=== PATIENT | female | born 1940 | race Caucasian/White ===

== ENCOUNTER 2016-11-23 07:01 | Day surgery (SDC) | payer OTHER ==
[~2016-11-23] VITALS: Ht 154.9 cm; Wt 70.8 kg
[~2016-11-23 07:01] MED LIST: ADVIL200 MG PO; AMLODIPINE BESY10 MG PO; APRESOLINE50 MG PO; ASPIR-LOW81 MG PO; BYSTOLIC10 MG PO; BYSTOLIC20 MG PO; Bystolic PO; CHOLESTYRAMINE P4 GM PO; COZAAR100 MG PO; CRESTOR20 MG PO; FERROUS SULFAT325 MG PO; HYDRALAZINE; HYDRALAZINE HCL50 MG PO; HYDROCHLOROTHIA25 MG PO; HYDROCODONE-CH473 ML PO; KEFLEX500 MG PO; KENLAOG,ARISTOC60 ML TP; LOPRESSOR25 MG PO; LOSARTAN POTASS25 MG PO; MECLIZINE HCL25 MG PO; METOPROLOL TART50 MG PO; Norvasc PO; PRILOSEC20 MG PO; Plavix PO; RESTASIS 01 DROP/0.4 BOTH EYES; XARELTO20 MG PO; ZESTRIL20 MG PO
== END 2016-11-23 11:20 | disposition home or self-care (01) ==
LOC: CATH 07:01
PROC: 03743ZZ Dilation of Left Subclavian Artery, Percutaneous Approach (ICD-10-PCS; principal; 2016-11-23)
DX: I77.1 Stricture of artery (principal); I48.91 Unspecified atrial fibrillation; E78.5 Hyperlipidemia, unspecified; I10 Essential (primary) hypertension; Z79.82 Long term (current) use of aspirin; Z79.01 Long term (current) use of anticoagulants
CPT/HCPCS: C1725; C1750; C1760; C1769; C1887; C1894; J0360; J1644; J2250; J3010; S0020

== ENCOUNTER 2018-05-14 16:41 | Inpatient (IN) | payer OTHER ==
[~2018-05-14] VITALS: Ht 152.4 cm; Wt 71.9 kg
[~2018-05-14 16:41] MED LIST changes: +LOPRESSOR100 M1 PO; -METOPROLOL TART50 MG PO; +OMEPRAZOLE40 M1 PO; +XARELTO10 MG PO
[2018-05-14 17:13] LABS: BASOPHIL (%) 0.4 % (0-1); EOSINOPHIL (%) 2.4 % (0-5); EOSINOPHIL COUNT 0.3 K/uL (0-0.3); HEMATOCRIT 36.7 % (36.0-46.0); HEMOGLOBIN 11.8 G/DL (11.9-15.5); IMMATURE GRANULOCYTE (%) 0.7 % (0.0-0.7); LYMPHOCYTE (%) 31.6 % (15-42); LYMPHOCYTE COUNT 3.3 K/uL (1.0-2.8); MCH 29.8 PG (29.0-34.0); MCHC 32.2 G/DL (30.0-36.0); MCV 92.7 FL (83-99); MONOCYTE (%) 9.4 % (3-12); NEUTROPHIL (%) 55.5 % (45-76); NEUTROPHIL COUNT 5.7 K/uL (1.8-6.4); PLATELET COUNT 391 K/uL (156-360); RBC DIS.WIDTH-CV 13.8 % (11.8-14.6); RBC DIS.WIDTH-SD 46.8 % (39-53); RED BLOOD COUNT 3.96 M/uL (3.80-5.20); WHITE BLOOD COUNT 10.3 K/uL (4.1-10.2)
[2018-05-14 17:19] LABS: INTER. NORMALIZED RATIO 1.2
[2018-05-14 17:21] LABS: PTT 32.5 SEC (25-37)
[2018-05-14 17:23] LABS: AMYLASE 114 IU/L (1-118); CHLORIDE 105 mEq/L (99-109); POTASSIUM 3.8 mEq/L (3.7-5.4); SODIUM 143 mEq/L (136-147)
[2018-05-14 17:24] LABS: GLUCOSE 104 mg/dL (70-99)
[2018-05-14 17:27] LABS: SERUM ETHYL ALCOHOL < 10 mg/dL
[2018-05-14 17:28] LABS: CREATININE 1.2 mg/dL (0.6-1.3); GFR ESTIMATE (CALCULATED) 46 mL/min/
[2018-05-14 17:29] LABS: UREA NITROGEN (BUN) 18 mg/dL (9-23)
[2018-05-14 17:31] LABS: LIPASE 74 U/L (1.0-51.0)
[2018-05-14 17:33] LABS: TROP-I INTERPRETATION NEGATIVE; TROPONIN-I 0.02 ng/mL (0.0-0.30)
[2018-05-14] MEDS ORDERED: ANTIVERT25 MG PO (20:26)
[2018-05-14] MEDS ORDERED: LASIX20 MG PO (20:30)
[2018-05-14] MEDS ORDERED: LIPITOR20 MG PO (20:30)
[2018-05-14 20:50] VITALS: BP 198/88
[2018-05-14 22:59] LABS: APPEARANCE CLEAR ((CLEAR)); BILIRUBIN NEGATIVE; BLOOD NEGATIVE; COLOR YELLOW ((YELLOW)); GLUCOSE (STRIP) NEGATIVE; KETONES NEGATIVE; LEUKOCYTES LARGE; NITRITE NEGATIVE; PROTEIN (STRIP) NEGATIVE; SPECIFIC GRAVITY 1.046 (1.000-1.030); UROBILINOGEN 0.2 MG/DL (0.2-1.0)
[2018-05-14 23:06] LABS: BACTERIA RARE /HPF; EPITHELIAL CELLS 1+ /HPF; MUCUS TRACE /LPF; RED BLOOD CELLS 0-5 /HPF (0-5); UCUL ADDED? YES; WHITE BLOOD CELLS 15-20 /HPF (0-5)
[2018-05-14 23:31] LABS: AMPHETAMINE NEGATIVE (500 ng/mL); BARBITURATES NEGATIVE (200 ng/mL); BENZODIAZEPINES NEGATIVE (150 ng/mL); BUPRENORPHINE NEGATIVE (10 ng/mL); COCAINE NEGATIVE (150 ng/mL); METHADONE NEGATIVE (200 ng/mL); METHAMPHETAMINE NEGATIVE (500 ng/mL); OPIATES (MORPHINE) NEGATIVE (100 ng/mL); OXYCODONE NEGATIVE (100 ng/mL); PHENCYCLIDINE NEGATIVE (25 ng/mL); PROPOXYPHENE NEGATIVE (300 ng/mL); THC CANNABINOIDS NEGATIVE (50 ng/mL); TRICYCLIC ANTIDEPRESSANTS NEGATIVE (300 ng/mL)
[2018-05-14 23:56] VITALS: BP 190/84
[2018-05-15] VITALS (8 sets, daily range): BP systolic 137–199; BP diastolic 68–80
[2018-05-15 05:56] LABS: MCH 29.1 PG (29.0-34.0); MCHC 31.4 G/DL (30.0-36.0); MCV 92.6 FL (83-99); PLATELET COUNT 341 K/uL (156-360); RBC DIS.WIDTH-CV 13.6 % (11.8-14.6); RBC DIS.WIDTH-SD 46.5 % (39-53); RED BLOOD COUNT 3.78 M/uL (3.80-5.20); WHITE BLOOD COUNT 12.4 K/uL (4.1-10.2)
[2018-05-15 06:18] LABS: ALBUMIN 3.8 G/DL (3.2-4.8); ALKALINE PHOSPHATASE 49 IU/L (3-129); ALT (GPT) 11 IU/L (3-49); AST (GOT) 15 IU/L (2-34); CHLORIDE 106 MEQ/L (99-109); GFR ESTIMATE (CALCULATED) 57 mL/min/; GLUCOSE 106 mg/dL (70-99); POTASSIUM 3.9 MEQ/L (3.7-5.4); SODIUM 141 MEQ/L (136-147); TOTAL BILIRUBIN 0.6 MG/DL (0.0-1.0); TOTAL PROTEIN 5.7 G/DL (6.4-8.3); UREA NITROGEN (BUN) 16 mg/dL (9-23)
[2018-05-15 13:19] LABS: HDL CHOLESTEROL 33 MG/DL (Desirable>=50); LDL CHOLESTEROL 104 mg/dL (Desirable<100); LIPASE 40 U/L (1.0-51.0); NON-HDL CHOLESTEROL 148 mg/dL (Desirable<160); TOTAL CHOLESTEROL 181 mg/dL (Desirable<200); TRIGLYCERIDES 221 MG/DL (Normal: <150)
[2018-05-15 14:58] LABS: HEMOGLOBIN A1c (GLYCOHEMOGLOB) 5.8 % (Below 5.7)
[2018-05-16 03:54] VITALS: BP 149/68
[2018-05-16 07:23] VITALS: BP 166/71
[2018-05-16 11:44] VITALS: BP 195/82
[2018-05-16 15:50] VITALS: BP 155/69
[2018-05-16 19:40] VITALS: BP 158/67
[2018-05-17 00:09] VITALS: BP 188/86
[2018-05-17 03:41] VITALS: BP 163/74
[2018-05-17 07:44] VITALS: BP 143/67
[2018-05-17 15:15] VITALS: BP 133/60
[2018-05-17] MEDS ORDERED: APRESOLINE50 MG PO (15:54)
[2018-05-17] MEDS ORDERED: XARELTO20 MG PO (15:54)
== END 2018-05-17 16:39 | disposition home or self-care (01) | DRG 65 ==
LOC: EME 16:41 → EDOF 19:16 → 5SOUTH 19:16 → ENRESERV 19:22 → 5SOUTH 20:51
PROVIDERS: Emergency Medicine; Internal Medicine
DX: I63.9 Cerebral infarction, unspecified (principal); I65.23 Occlusion and stenosis of bilateral carotid arteries; R47.81 Slurred speech; R29.810 Facial weakness; I69.354 Hemiplegia and hemiparesis following cerebral infarction affecting left non-dominant side; I48.2 Chronic atrial fibrillation; I10 Essential (primary) hypertension; E78.5 Hyperlipidemia, unspecified; K21.9 Gastro-esophageal reflux disease without esophagitis; E53.8 Deficiency of other specified B group vitamins; D64.9 Anemia, unspecified; L30.9 Dermatitis, unspecified; M19.90 Unspecified osteoarthritis, unspecified site
CPT/HCPCS: 70450; 70496; 70498; 70551; 80047; 80048; 80053; 80061; 81003; 82150; 82948; 83036; 83690; 84484; 85025; 85027; 85610; 85730; 86850; 86900; 86901; 87086; 92610 GN; 93005; 99281; 99285; G0480; J0360; J7030; J7040